=== PATIENT | male | born 1995 | race Caucasian/White ===

== ENCOUNTER 2018-01-05 11:46 | Day surgery (SDC) | payer OTHER ==
[2018-01-05] MEDS ORDERED: Sodium Chloride 0.9% 10 ML Syringe FLUSH PRN (13:00)
[2018-01-05] MEDS ORDERED: Lactated Ringers 1,000 ML IV SCH (13:00)
[2018-01-05] MEDS ORDERED: ceFAZolin 2 GM in Premix Bag 1 BAG IV ONE (14:06)
--- NOTE | 2018-01-05 15:54 | PCM.PN ---
- General Info Date of Service: 01/05/18 - Review of Systems Systems Review Comment:: Patient here for right inguinal hernia repair. Site confirmed with the patinet and marked. Procedure again reviewed with the patient and expectations reviewed. He appears to understand and agrees to proceed. - Patient Data Vitals - Most Recent: Last Vital Signs Temp 98.3 F 01/05/18 13:10 Pulse 73 01/05/18 13:10 Resp 16 01/05/18 13:10 BP 151/90 H 01/05/18 13:10 Pulse Ox 99 01/05/18 13:10 Weight - Most Recent: 195 lb Med Orders - Current: Current Medications Lactated Ringer's (Ringers, Lactated) 1,000 mls @ 125 mls/hr IV ASDIRECTED ALIZE Last Admin: 01/05/18 13:48 Dose: 125 mls/hr Sodium Chloride (Saline Flush) 10 ml FLUSH ASDIRECTED PRN PRN Reason: Keep Vein Open Discontinued Medications Cefazolin Sodium/Dextrose 2 gm (/ Premix) 50 mls @ 100 mls/hr IV ONETIME ONE Stop: 01/05/18 14:35 - Problem List Review Problem List Initiated/Reviewed/Updated: Yes - My Orders Last 24 Hours: My Active Orders 01/05/18 13:00 Patient Status [ADT] Routine Patient to Empty Bladder [RC] ASDIRECTED RT Incentive Spirometry [RC] ASDIRECTED Verify Patient Consent Obtain [RC] ASDIRECTED Lactated Ringers [Ringers, Lactated] 1,000 ml IV ASDIRECTED Sodium Chloride 0.9% [Saline Flush] 10 ml FLUSH ASDIRECTED PRN Peripheral IV Insertion Adult [OM.PC] Routine Sequential Compression Device [OM.PC] Routine Resuscitation Status Routine - Assessment Assessment:: Right Inguinal Hernia - Plan Plan:: Right Inguinal Hernia Repair
[2018-01-05] MEDS ORDERED: Ondansetron 4 MG/2 ML SDV IVPUSH ONE (16:00)
[2018-01-05] MEDS ORDERED: diphenhydrAMINE 50 MG/ML SDV IVPUSH ONE (16:00)
[2018-01-05] MEDS ORDERED: fentaNYL 100 MCG/2 ML SDV IV ONE (16:00)
[2018-01-05] MEDS ORDERED: Lactated Ringers 1,000 ML IV ONE (16:00)
[2018-01-05] MEDS ORDERED: Ketorolac 30 MG/ML SDV IVPUSH ONE (16:00)
[2018-01-05] MEDS ORDERED: Midazolam 1 MG/ML 2 ML SDV IV ONE (16:00)
[2018-01-05] MEDS ORDERED: Propofol 200 MG/20 ML SDV IV ONE (16:00)
[2018-01-05] MEDS ORDERED: Morphine 10 MG/ML Syringe IVPUSH ONE (16:00)
[2018-01-05] MEDS ORDERED: Bupivacaine 0.5% 30 ML SDV INJECT ONE (16:22)
[2018-01-05] MEDS ORDERED: ceFAZolin 1 GM Vial ONE (16:25)
--- NOTE | 2018-01-05 17:50 | PCM.OPNOTE ---
- General Post-Op/Procedure Note Date of Surgery/Procedure: 01/05/18 Operative Procedure(s): Repair Right Inguinal Hernia Findings: Moderate sized direct right inguinal hernia Pre Op Diagnosis: Right Inguinal Hernia Post-Op Diagnosis: Direct Right Inguinal Hernia Anesthesia Technique: General LMA Primary Surgeon: Addison Sidhu Pathology: none Output, Urine Amount: 0 EBL in mLs: 20 Complications: None Condition: Good
--- NOTE | 2018-01-05 21:28 | OR ---
DATE OF OPERATION: 01/05/2018 SURGEON: Addison Sidhu MD PREOPERATIVE DIAGNOSIS: Right inguinal hernia. POSTOPERATIVE DIAGNOSIS: Right direct inguinal hernia. TEST PERFORMED: Repair of a right inguinal hernia with mesh. INDICATIONS FOR SURGERY: This 22-year-old male recently developed a bulge in the right groin while doing some extreme lifting. Physical findings were consistent with a right inguinal hernia, and he comes for repair. FINDINGS: In the right groin, the patient has a moderate-sized direct inguinal hernia. The floor of the inguinal canal is bulging, and there is also a split in the external oblique fascia. The cord structures appear satisfactory with only a minimal amount of fatty tissue, and the adjacent structures appear normal. PROCEDURE IN DETAIL: The patient was taken to the operating room. He was given general anesthesia by LMA, and the groin area was sterilely prepped and draped. A linear right groin incision was made and carried down to the external oblique fascia, which was incised through the split, opening the external ring. The ilioinguinal nerve was identified and carefully preserved. The spermatic cord was isolated. The cord was explored, but no indirect component was identified. A moderate-sized direct component was noted in the floor of the inguinal canal. This floor of the inguinal canal was then reinforced by securing in position a large-sized keyhole-shaped piece of polypropylene mesh, the inferior edge of the mesh being secured down to the Marbin ligament medial to both femoral vessels and the shelving portion of the inguinal ligament anterior to these vessels with interrupted 0 Prolene. The superior edge of the mesh was secured down to the internal oblique fascia near its fusion with the external oblique fascia, also with interrupted 0 prolene. The ilioinguinal nerve and the spermatic cord were passed through the keyhole defect, and the tails of the mesh were secured laterally with interrupted 0 prolene to recreate the internal ring such that it would admit 1 fingertip alongside the spermatic cord. The tails of the mesh were trimmed and laid into the space between the internal and external oblique fascia lateral to the internal ring. This created a secure and complete repair of the floor of the inguinal canal. After inspection showed no sign of any bleeding or complication, the external oblique fascia was then repaired, reapproximating the edges with running 2-0 Vicryl, recreating the external ring. The wound was infiltrated with Marcaine. Closure was completed by approximating the Daryn fascia with interrupted 4-0 Vicryl and the skin with a running 4-0 Vicryl subcuticular stitch. Steri-Strips and benzoin were applied, followed by a sterile dry dressing. The patient was awakened and taken from the operating room in satisfactory condition. ESTIMATED BLOOD LOSS: 20 mL. COMPLICATIONS: None. PROGNOSIS: Good. /[id number]
== END 2018-01-05 19:25 ==
LOC: FB.MS 11:46 → FB.SDS 11:46 → MERGE 11:46 → FB.MS 18:21 → FB.SDS 18:21 → FB.MS 19:25 → FB.SDS 19:25
PROVIDERS: ATTEND Surgery
DX: K40.90 Unilateral inguinal hernia, without obstruction or gangrene, not specified as recurrent (principal); Z88.0 Allergy status to penicillin
CPT/HCPCS: 49505; C1781; J0690; J1200; J1885; J2250; J2270; J2405; J2704; J3010; J7120